=== PATIENT | female | born 2005 | race Two or more races ===

== ENCOUNTER → 2025-07-11 | Outpatient (CLI) | payer OTHER ==
[2025-07-11 18:19] LABS: PLATELET COUNT, AUTOMATED 213 10^3/uL (150-450)
[2025-07-11 18:48] LABS: HIV 1&2 SCREEN NEGATIVE (NEGATIVE)
[2025-07-11 18:56] LABS: HEPATITIS C VIRUS ABY INDEX 0.08 INDEX (<0.8)
[2025-07-11 19:24] LABS: Trichomonas vaginalis (AMP) NOT DETECTED (NEGATIVE)
[2025-07-11 19:47] LABS: GC DNA AMPLIFICATION NEGATIVE (NEGATIVE)
== END ==
LOC: M PLALAB 15:26
PROVIDERS: ATTEND Advanced Practice Midwife
DX: Z34.01 Encounter for supervision of normal first pregnancy, first trimester (principal)